=== PATIENT | female | born 1940 | race Two or more races ===

== ENCOUNTER 2018-05-21 12:48 | Outpatient (CLI) | payer OTHER ==
[~2018-05-21 12:48] MED LIST: ECOTRIN81 MG; TOPROL XL25 MG; VASOTEC5 MG; ZOCOR20 MG
== END 2018-05-21 12:50 | disposition home or self-care (01) ==
LOC: SONOGRAMA 12:48
DX: E04.1 Nontoxic single thyroid nodule (principal)

== ENCOUNTER → 2018-06-14 | Outpatient (CLI) | payer OTHER | END | disposition home or self-care (01) | LOC: NUCLEAR 08:30 | DX: I11.9 Hypertensive heart disease without heart failure (principal); I34.1 Nonrheumatic mitral (valve) prolapse; I50.32 Chronic diastolic (congestive) heart failure ==

== ENCOUNTER 2018-06-21 10:17 | Outpatient (CLI) | payer OTHER | END 2018-06-21 10:19 | disposition home or self-care (01) | LOC: SONOGRAMA 10:17 | DX: E04.1 Nontoxic single thyroid nodule (principal) ==